=== PATIENT | female | born 1980 | race Caucasian/White ===

== ENCOUNTER 2016-06-24 13:53 | Emergency (ER) | payer MEDICAID ==
[2016-06-24 14:08] VITALS: TEMP 98.2
[2016-06-24] MEDS ORDERED: HYDROmorphONE/DILAUDID 1 MG/ML SYR IVP ONE (14:47)
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
[2016-06-24 15:29] LABS: % IMMATURE GRANULYOCYTES 0.6 % (0.0-1.1); ABSOLUTE IMMATURE GRANULOCYTES 0.07 10^3/uL (0.00-0.10); ADD DIFF? NO; ADD MORPH? NO; ADD SCAN? NO; ATYPICAL LYMPHOCYTE FLAG 10 (0-99); FRAGMENT RBC FLAG 0 (0-99); HEMATOCRIT 43.1 % (38.0-47.0); HEMOGLOBIN 14.3 g/dL (12.6-16.3); LEFT SHIFT FLG 0 (0-99); LIPEMIA HEMOLYSIS FLAG 80 (0-99); MEAN CELL HEMOGLOBIN 29.4 pg (27.9-34.1); MEAN CELL HEMOGLOBIN CONCENTR. 33.2 g/dL (32.4-36.7); MEAN CELL VOLUME 88.5 fL (81.5-99.8); MEAN PLATELET VOLUME 9.9 fL (8.7-11.7); PLATELET CLUMPS FLAG 0 (0-99); PLATELET COUNT 303 10^3/uL (150-400); RED BLOOD CELL COUNT 4.87 10^6/uL (4.18-5.33); RED CELL DISTRIBUTION WIDTH 12.9 % (11.5-15.2)
[2016-06-24 15:33] LABS: COLOR COLORLESS; LEUKOCYTE ESTERASE,URINE NEGATIVE (NEGATIVE); NITRITE,URINE NEGATIVE (NEGATIVE)
[2016-06-24 15:37] LABS: RBC,URINE 15-25 /hpf (0-3)
[2016-06-24 15:39] LABS: WBC,URINE NONE SEEN /hpf (0-3)
[2016-06-24 15:44] LABS: ANION GAP 9 mEq/L (8-16); CALCIUM 9.8 mg/dL (8.5-10.4); CARBON DIOXIDE 23 mEq/l (22-31); CHLORIDE 108 mEq/L (97-110); CREATININE 0.6 mg/dL (0.6-1.0); GLOMERULAR FILTRATION RATE > 60; GLUCOSE 81 mg/dL (70-100); SODIUM 140 mEq/L (134-144)
[2016-06-24 16:20] VITALS: RESP 16
[2016-06-24] MEDS ORDERED: metroNIDAZOLE 500 MG TAB PO ONE (17:49)
[2016-06-24] MEDS ORDERED: CEFTRIAXONE IM 350 MG/ML SYRINGE IM ONE (17:49)
[2016-06-24] MEDS ORDERED: DOXYCYCLINE HYCLATE 100 MG CAP/TAB PO ONE (17:49)
[2016-06-24 18:44] VITALS: BP 125/84; PULSE 82; O2SAT 95
[2016-06-25 14:43] LABS: CHLAMYDIA AMPLIFICATION GENPRB NEGATIVE (NEGATIVE)
== END 2016-06-24 18:30 | disposition home or self-care (01) ==
DX: N73.9 Female pelvic inflammatory disease, unspecified (principal); F17.200 Nicotine dependence, unspecified, uncomplicated
CPT/HCPCS: 96374; J0696; J1170

== ENCOUNTER 2016-11-26 12:47 | Emergency (ER) | payer MEDICAID ==
[2016-11-26] MEDS ORDERED: MAG HYDROX/AL HYDROX/SIMETH 30 ML UDCUP PO ONE (15:09)
[2016-11-26] MEDS ORDERED: LIDOCAINE 2% VISCOUS 15 ML UDCUP PO ONE (15:09)
[2016-11-26] MEDS ORDERED: HYOSCYAMINE SULFATE 0.125 MG TAB PO ONE (15:09)
--- NOTE | 2016-11-26 15:13 | EDPHY ---
H & P Time Seen by Provider: 11/26/16 14:15 HPI/ROS: CHIEF COMPLAINT: Possibly swallowed glass HISTORY OF PRESENT ILLNESS: 36-year-old female states that she was using a glass "dab" pipe to take a dab of marijuana. The end of the glass had broken previously. When she inhaled the marijuana she became concerned that she may have inhaled small fragments of glass from the broken end. She is reporting a discomfort at the base of her throat when swallowing. She has been able to eat and drink. There has been no history of drooling. She denies any choking, she denies any shortness of breath or chest discomfort. She denies any bleeding in her mouth. She denies any abdominal pain. No fever, chills, chest pain, shortness of breath, palpitations, vomiting, diarrhea, urinary complaints, headache, lightheadedness. REVIEW OF SYSTEMS: Aside from elements discussed in the HPI, a comprehensive 10-point review of systems was reviewed and is negative. PAST MEDICAL HISTORY: Chronic back pain, mental health disorder. SOCIAL HISTORY: Heavy smoker. Uses marijuana. Denies alcohol or illicit drugs. VITAL SIGNS: see nurse's notes. GENERAL: Well-developed, well-nourished, pleasant. Patient is not drooling. She has no respiratory distress. HEENT: Normal, no discharge or icterus, no intraoral trauma noted. No bleeding. Moist mucous membranes. Patient is not drooling. Neck: supple, FROM. No swelling over the throat. No tenderness palpation on throat. No stridor. LUNGS: Clear to auscultation bilaterally, no wheezes, rhonchi or rales. No diminished breath sounds. CARDIAC: Regular rate and rhythm, no rubs, murmurs or gallops. ABDOMEN: Soft, nontender, nondistended, bowel sounds normal. BACK: No CVA tenderness. No vertebral tenderness. EXTREMITIES: No edema, FROM. NEURO: Alert and oriented, grossly nonfocal. SKIN: Warm and dry, no rash. Smoking Status: Heavy smoker Constitutional: Initial Vital Signs Temperature (C) 37.1 C 11/26/16 12:51 Heart Rate 103 H 11/26/16 12:51 Respiratory Rate 16 11/26/16 12:51 Blood Pressure 97/81 H 11/26/16 12:51 O2 Sat (%) 97 11/26/16 12:51 O2 Delivery Mode Room Air Allergies/Adverse Reactions: aripiprazole [From Abilify] Allergy (Severe, Verified 06/24/16 14:08) Other-Enter Comments midazolam HCl [From Versed] Allergy (Severe, Verified 06/24/16 14:08) Other-Enter Comments Home Medications: Medication Instructions Recorded Geodon 12/13/15 Lasix 12/13/15 Levothyroxine 12/13/15 Periactin 4 MG (*) 12/13/15 traZODone 12/13/15 Doxycycline Hyclate [Vibramycin] 100 mg PO BID #30 cap 06/24/16 metroNIDAZOLE [Flagyl] 500 mg PO BID #20 tab 06/24/16 Ativan 11/26/16 Flexeril 11/26/16 Gabapentin 800 mg 11/26/16 OXcarbazepine 11/26/16 Vistaril 11/26/16 Medical Decision Making - Diagnostics Imaging Results: Soft tissue of neck: Impression: Normal soft tissue view of the neck. Dictated By: Oswaldo Lama MD CXR: Findings: Heart size and pulmonary vasculature are normal. The lungs are clear without infiltrates or effusions. There is no pneumothorax. The osseous structures are intact. No radiopaque foreign body is seen over the chest. Impression: Normal chest x-ray. Dictated By: Oswaldo Lama MD Imaging: I viewed and interpreted images myself ED Course/Re-evaluation: 36-year-old female presents reporting a foreign body sensation at the base of throat. This developed after she inhaled marijuana via a glass pipe at which have been broken on the end. Patient has no respiratory distress. She has no signs of trauma in the mouth. She has not had any difficulty swallowing food or liquids. X-rays are reassuring. No foreign body is noted on either soft tissue of the neck nor on a chest x-ray. No evidence for inhaled foreign body is noted on the chest x-ray. Patient received a GI cocktail. She reports her symptoms are improved. She was instructed follow up with the primary care physician and was also given referral to GI should her symptoms continue. Differential Diagnosis: Differential diagnoses for the patient's symptom complex was considered including but not limited to swallowed foreign body, retained foreign body, esophageal abrasion, inhaled foreign body, esophageal strictures. - Data Points Medications Given: Discontinued Medications Al Hydroxide/Mg Hydroxide (Maalox Susp) 30 ml PO ONCE ONE Stop: 11/26/16 15:10 Last Admin: 11/26/16 15:24 Dose: 30 ml Hyoscyamine Sulfate (Levsin, Hyomax-Sl) 0.25 mg PO ONCE ONE Stop: 11/26/16 15:10 Last Admin: 11/26/16 15:22 Dose: 0.25 mg Lidocaine (Lidocaine 2% Viscous) 15 ml PO ONCE ONE Stop: 11/26/16 15:10 Last Admin: 11/26/16 15:24 Dose: 15 ml Departure - Departure Disposition: Home, Routine, Self-Care Clinical Impression: History of foreign body ingestion Condition: Good Instructions: Foreign Body Ingestion (ED) Additional Instructions: There is no evidence of an obstructive foreign body on the x-rays. If you continue to have difficulties swallowing or pain in your throat, please follow up with Gastroenterology. A endoscopy may be needed. If you develop cough, shortness of breath, fever, pain with breathing, or other concerns regarding your respiratory status, please follow up with your primary care physician. Referrals: Sharlene Zepeda MD [Primary Care Provider] - As per Instructions Rosalio Barrios MD [[facility] [place] Primary Care Provider] - As per Instructions
[2016-11-26 15:27] VITALS: BP 124/88; PULSE 69; RESP 18; TEMP 98.2; O2SAT 94
== END 2016-11-26 15:45 | disposition home or self-care (01) ==
DX: Z03.89 Encounter for observation for other suspected diseases and conditions ruled out (principal); F17.200 Nicotine dependence, unspecified, uncomplicated

== ENCOUNTER 2017-02-25 14:00 | Emergency (ER) | payer MEDICAID ==
[2017-02-25 14:34] VITALS: TEMP 98.4; O2SAT 96
--- NOTE | 2017-02-25 14:41 | EDPHY ---
H & P Time Seen by Provider: 02/25/17 14:22 HPI/ROS: CHIEF COMPLAINT: Suicidal ideation, depression HISTORY OF PRESENT ILLNESS: The patient is a 28-year-old female who presents emergency department with suicidal ideation. The patient has an extensive history of depression and previous suicide attempts x6. Patient states she has been feeling worse lately. She went to the walk-in clinic because she was feeling suicidal. She denies self-harm at this point. She was placed on a hold and sent to the emergency department for evaluation. She denies ingestion. She denies drugs or alcohol. REVIEW OF SYSTEMS: My complete review of systems is negative except as mentioned in the HPI. Past Medical/Surgical History: Includes depression, endometriosis, sciatica Past surgical history: Includes mastectomy, x5, cholecystectomy, hysterectomy, pelvic mesh Social history: The patient denies drugs or alcohol. Smoking Status: Heavy smoker Physical Exam: Vitals noted GENERAL: Well-appearing, in no acute distress, alert. HEENT: Eyes normal to inspection, normal pharynx, no signs of dehydration. NECK: No thyromegaly, no lymphadenopathy, supple. RESPIRATORY: Clear to auscultation bilaterally, no rales, rhonchi or wheezing. CVS: Regular rate and rhythm, no rubs, murmurs, or gallops. ABDOMEN: Soft, nontender, nondistended, no organomegaly. BACK: Normal to inspection, no CVA tenderness. SKIN: Normal color, no rash, warm, dry. No pallor. EXTREMITIES: No pedal edema, no calf tenderness, no Homans sign or cords, no joint swelling. NEURO/PSYCH: Alert and oriented x3, normal mood and affect, normal motor sensory exam. Constitutional: Initial Vital Signs Temperature (C) 36.9 C 02/25/17 14:15 Heart Rate 80 02/25/17 14:15 Respiratory Rate 18 02/25/17 14:15 Blood Pressure 167/78 H 02/25/17 14:15 O2 Sat (%) 96 02/25/17 14:15 O2 Delivery Mode Room Air Allergies/Adverse Reactions: aripiprazole [From Abilify] Allergy (Severe, Verified 06/24/16 14:08) Other-Enter Comments midazolam HCl [From Versed] Allergy (Severe, Verified 06/24/16 14:08) Other-Enter Comments Home Medications: Medication Instructions Recorded Geodon 12/13/15 Lasix 12/13/15 Levothyroxine 12/13/15 Periactin 4 MG (*) 12/13/15 traZODone 12/13/15 Ativan 11/26/16 Flexeril 11/26/16 Gabapentin 800 mg 11/26/16 OXcarbazepine 11/26/16 Vistaril 11/26/16 Medical Decision Making ED Course/Re-evaluation: In the emergency department I discussed possible etiologies with the patient. She is aware that she was placed on a mental health hold. She consented to laboratory studies. 1500: The patient is signed out at change of shift to Dr. Leos. Differential Diagnosis: My differential includes but is not limited to depression, suicidal ideation, bipolar disorder, ingestion, intoxication - Data Points Laboratory Results: 02/25/17 02/25/17 02/25/17 14:23 14:23 14:23 WBC RBC Hgb Hct MCV MCH MCHC RDW Plt Count MPV Neut % (Auto) Lymph % (Auto) [place] % (Auto) Eos % (Auto) Baso % (Auto) Nucleat RBC Rel Count Absolute Neuts (auto) Absolute Lymphs (auto) Absolute Monos (auto) Absolute Eos (auto) Absolute Basos (auto) Absolute Nucleated RBC Immature Gran % Immature Gran # Sodium Pending Potassium Pending Chloride Pending Carbon Dioxide Pending Anion Gap Pending BUN Pending Creatinine Pending Estimated GFR Pending Glucose Pending Calcium Pending Beta HCG, Qual Pending Urine Opiates Screen Pending Urine Barbiturates Pending Ur Phencyclidine Scrn Pending Ur Amphetamine Screen Pending U Benzodiazepines Scrn Pending Urine Cocaine Screen Pending U Marijuana (THC) Screen Pending Ethyl Alcohol Pending 02/25/17 14:23 WBC Pending RBC Pending Hgb Pending Hct Pending MCV Pending MCH Pending MCHC Pending RDW Pending Plt Count Pending MPV Pending Neut % (Auto) Pending Lymph % (Auto) Pending [place] % (Auto) Pending Eos % (Auto) Pending Baso % (Auto) Pending Nucleat RBC Rel Count Pending Absolute Neuts (auto) Pending Absolute Lymphs (auto) Pending Absolute Monos (auto) Pending Absolute Eos (auto) Pending Absolute Basos (auto) Pending Absolute Nucleated RBC Pending Immature Gran % Pending Immature Gran # Pending Sodium Potassium Chloride Carbon Dioxide Anion Gap BUN Creatinine Estimated GFR Glucose Calcium Beta HCG, Qual Urine Opiates Screen Urine Barbiturates Ur Phencyclidine Scrn Ur Amphetamine Screen U Benzodiazepines Scrn Urine Cocaine Screen U Marijuana (THC) Screen Ethyl Alcohol Departure - Departure Clinical Impression: Suicidal ideation Depression Qualifiers: Depression Type: unspecified Qualified Code(s): F32.9 - Major depressive disorder, single episode, unspecified Condition: Good Referrals: NONE *PRIMARY CARE P,. [Primary Care Provider] - As per Instructions
[2017-02-25 14:45] LABS: % IMMATURE GRANULYOCYTES 0.5 % (0.0-1.1); ABSOLUTE IMMATURE GRANULOCYTES 0.05 10^3/uL (0.00-0.10); ADD DIFF? NO; ADD MORPH? NO; ADD SCAN? NO; ATYPICAL LYMPHOCYTE FLAG 0 (0-99); FRAGMENT RBC FLAG 0 (0-99); HEMATOCRIT 42.2 % (38.0-47.0); HEMOGLOBIN 14.1 g/dL (12.6-16.3); LEFT SHIFT FLG 0 (0-99); LIPEMIA HEMOLYSIS FLAG 80 (0-99); MEAN CELL HEMOGLOBIN 28.8 pg (27.9-34.1); MEAN CELL HEMOGLOBIN CONCENTR. 33.4 g/dL (32.4-36.7); MEAN CELL VOLUME 86.1 fL (81.5-99.8); MEAN PLATELET VOLUME 9.5 fL (8.7-11.7); PLATELET CLUMPS FLAG 10 (0-99); PLATELET COUNT 325 10^3/uL (150-400); RED CELL DISTRIBUTION WIDTH 13.2 % (11.5-15.2)
[2017-02-25 15:00] LABS: ANION GAP 13 mEq/L (8-16); CARBON DIOXIDE 23 mEq/l (22-31); CHLORIDE 108 mEq/L (97-110); CREATININE 0.7 mg/dL (0.6-1.0); ETHANOL SERUM < 10 mg/dL (0-10); GLOMERULAR FILTRATION RATE > 60; GLUCOSE 109 mg/dL (70-100); POTASSIUM 4.3 mEq/L (3.5-5.2); SALICYLATE < 1.0 mg/dL (2.0-20.0); SODIUM 144 mEq/L (134-144)
[2017-02-25] MEDS ORDERED: LORazepam 1 MG TAB PO ONE (21:49)
[2017-02-25 22:08] VITALS: BP 113/62; PULSE 68; RESP 14
[2017-02-25] MEDS ORDERED: GABAPENTIN 300 MG CAP PO ONE (23:00)
[2017-02-25] MEDS ORDERED: hydrOXYzine HCL 50 MG TAB PO ONE (23:00)
[2017-02-25] MEDS ORDERED: CYPROHEPTADINE HCL 4 MG TAB PO ONE (23:00)
[2017-02-25] MEDS ORDERED: traZODone 50 MG TAB PO ONE (23:00)
[2017-02-25] MEDS ORDERED: PERPHENAZINE 8 MG TAB PO ONE (23:00)
[2017-02-25] MEDS ORDERED: OXcarbazepine 300 MG TAB PO ONE (23:00)
== END 2017-02-25 22:11 ==
LOC: EDUNIT#
DX: F32.9 Major depressive disorder, single episode, unspecified (principal); F17.200 Nicotine dependence, unspecified, uncomplicated
CPT/HCPCS: 80305; G0480

== ENCOUNTER 2017-03-27 10:46 | Emergency (ER) | payer MEDICAID ==
[~2017-03-27 10:46] MED LIST: CYPROHEPTADINE HCL 4 MG TAB PO SCH; LEVOTHYROXINE 75 MCG TAB PO SCH; PERPHENAZINE 8 MG TAB PO SCH
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
[2017-03-27 11:27] LABS: PLATELET COUNT 307 10^3/uL (150-400)
[2017-03-27 16:41] VITALS: RESP 16
[2017-03-27] MEDS ORDERED: hydrOXYzine HCL 50 MG TAB PO PRN (21:13)
[2017-03-27] MEDS ORDERED: PERPHENAZINE 8 MG TAB PO SCH (21:15)
[2017-03-27] MEDS ORDERED: OXcarbazepine 300 MG TAB PO SCH (21:15)
[2017-03-27] MEDS ORDERED: GABAPENTIN 300 MG CAP PO ONE ×2 (21:28→21:54)
[2017-03-27] MEDS ORDERED: LORazepam 1 MG TAB PO ONE (21:53)
[2017-03-27] MEDS ORDERED: IBUPROFEN 600 MG TAB PO ONE (21:53)
[2017-03-27] MEDS ORDERED: CYPROHEPTADINE HCL 4 MG TAB PO SCH (22:00)
[2017-03-28 00:01] VITALS: BP 122/80; PULSE 75; TEMP 96.8; O2SAT 98
[2017-03-28] MEDS ORDERED: GABAPENTIN 250 MG/5 ML 30 ML BOTTLE PO SCH (21:00)
== END 2017-03-28 00:15 ==
LOC: EEVIPCON 10:46
DX: R45.851 Suicidal ideations (principal); F32.9 Major depressive disorder, single episode, unspecified; F17.200 Nicotine dependence, unspecified, uncomplicated
CPT/HCPCS: 80305; G0480